=== PATIENT | female | born 1970 | race Caucasian/White ===

== ENCOUNTER 2023-12-06 20:41 | Emergency (ER) | payer OTHER ==
[~2023-12-06] VITALS: Ht 167.6 cm; Wt 68.0 kg
[2023-12-06 20:43] VITALS: BP 121/73; PULSE 103; RESP 20; TEMP 97.8; O2SAT 99
[2023-12-06 21:00] VITALS: O2SAT 99
[2023-12-06] MEDS: LORazepam 2 MG/ML VIAL IM ONE (21:18)
[2023-12-06] MEDS ORDERED: IBUP-2213 PO (23:08)
[2023-12-06] MEDS: KETOROLAC 60 MG/2 ML VIAL IM ONE (23:17)
[2023-12-06 23:20] VITALS: BP 121/73; PULSE 103; RESP 20; TEMP 97.8; O2SAT 99
== END 2023-12-06 23:25 | disposition home or self-care (01) ==
LOC: MED 20:41
DX: F41.9 Anxiety disorder, unspecified (principal); R51.9 Headache, unspecified; Z98.890 Other specified postprocedural states
CPT/HCPCS: 96372; 99283; J1885; J2060